=== PATIENT | female | born 1960 | race Caucasian/White ===

== ENCOUNTER 2016-07-27 08:24 | Emergency (ER) | payer BC, OTHER ==
[~2016-07-27] VITALS: Ht 162.6 cm; Wt 94.5 kg
[2016-07-27 08:31] VITALS: BP 149/93; PULSE 75; RESP 17; TEMP 97.6; O2SAT 95
[2016-07-27] MEDS ORDERED: LISI10TA3 PO (08:52)
[2016-07-27] MEDS ORDERED: VITA100064 PO (08:52)
[2016-07-27] MEDS ORDERED: JANU50TA4 PO (08:52)
[2016-07-27] MEDS ORDERED: CYCL1TAB29 PO (09:06)
[2016-07-27] MEDS ORDERED: NORC5TAB PO (09:06)
--- NOTE | 2016-07-27 09:06 | PD ---
HPI Chief Complaint: Injury Time Seen by Provider: 08:55 Travel History International Travel<30 days: No Contact w/Intl Traveler<30days: No Traveled to known affect area: No History of Present Illness HPI 55-year-old female here with complaint of right shoulder pain. Patient has been doing a fair amount of lawn work in maintenance. She was lifting the basket from the lawnmower off which was unfortunately filled with much sand. She states she strained her right shoulder. For the last 2 days she has not been having pain in the right shoulder made worse with movement particularly above the head. States it is uncomfortable to lay on the shoulder at night. She has been trying Tylenol, ibuprofen, ice with some improvement of her symptoms. PFSH Past Medical History Diabetes: Yes Patient Takes Glucophage: Yes Diminished Hearing: No Hypertension: Yes ?: Not Social History Alcohol Use: No Tobacco Use: Yes (06/08 PPD) Substance Use: No Allergies-Medications (Allergen,Severity, Reaction): Coded Allergies: No Known Allergies (Unverified , 07/27/16) Reported Meds & Prescriptions Reported Meds & Active Scripts Active [place] (Hydrocodone-Acetaminophen) 5-325 mg Tab 1-2 Tab PO Q6H PRN Flexeril (Cyclobenzaprine HCl) 10 Mg Tab 10 Mg PO TID PRN Reported Vitamin D (Cholecalciferol) 1,000 Unit Tab 1,000 Units PO DAILY Lisinopril 10 Mg Tab 10 Mg PO DAILY Janumet (Sitagliptin-Metformin) 50-500 Mg Tab 1 Tab PO BID Review of Systems Except as stated in HPI: all other systems reviewed are Neg Physical Exam Narrative GENERAL: Well-appearing female in no acute distress SKIN: Focused skin assessment warm/dry. HEAD: Normocephalic. EYES: No scleral icterus. No injection or drainage. ENT: No nasal bleeding or discharge. Mucous membranes pink and moist. NECK: Supple CARDIOVASCULAR: Regular rate and rhythm. No murmur appreciated. RESPIRATORY: No accessory muscle use. Clear to auscultation. Breath sounds equal bilaterally. GASTROINTESTINAL: Obese MUSCULOSKELETAL: No obvious deformities. No edema. Patient splints this shoulder to her torso. She has tenderness to palpation along the scapular region and the head of the biceps anteriorly. She is able to passively range the arm in the low range of motions but greater than 90 abduction or external rotation reproduces her pain both passively and actively. Distal sensation, pulses and strength is intact. NEUROLOGICAL: Awake and alert. Normal speech. PSYCHIATRIC: Appropriate mood and affect; insight and judgment normal. Data Data Last Documented VS Vital Signs Date Time Temp Pulse Resp B/P Pulse Ox O2 Delivery O2 Flow Rate FiO2 07/27/16 08:46 97 Room Air 07/27/16 08:31 97.6 75 17 149/93 MDM Medical Decision Making Medical Screen Exam Complete: Yes Emergency Medical Condition: Yes Medical Record Reviewed: Yes Differential Diagnosis 55-year-old female here with right sided shoulder pain made worse with movement since overuse injury when lifting heavy lawnmowing basket. Symptoms are consistent with rotator cuff strain and injury. She has not fallen or had any trauma and her exam is not consistent with fracture or dislocation. I do not think she warrants imaging. Narrative Course Patient was offered sling but frankly she was so she is moving the arm well and low range of motions are think that this would more inhibit her than anything. Patient will be given muscle relaxers and analgesics for home and encouraged to rest the shoulder. Diagnosis Primary Impression: Strain of muscle(s) and tendon(s) of the rotator cuff of right shoulder, initial encounter Referrals: Primary Care Physician as needed Additional Instructions: pain medications and muscle relaxers as needed. Ice the affected area 20 minutes at a time 3-4 times daily. Med/Other Pt SpecificInfo: Prescription(s) given Scripts Hydrocodone-Acetaminophen ([place])5-325 mg Tab1-2 Tab PO Q6H PRN (PAIN) #15 TAB Ref 0 Prov:Annette Andrews MD 07/27/16 Cyclobenzaprine (Flexeril)10 Mg Tab10 Mg PO TID PRN (SPASM) #21 TAB Ref 0 Prov:Annette Andrews MD 07/27/16 Disposition: 01 DISCHARGE HOME Condition: Stable Annette Andrews MD Jul 27, 2016 09:06
== END 2016-07-27 09:20 | disposition home or self-care (01) ==
LOC: PHED 08:24
DX: S46.011A Strain of muscle(s) and tendon(s) of the rotator cuff of right shoulder, initial encounter (principal); X50.0XXA Overexertion from strenuous movement or load, initial encounter; Y93.H2 Activity, gardening and landscaping; Y92.414 Local residential or business street as the place of occurrence of the external cause; Y99.0 Civilian activity done for income or pay
CPT/HCPCS: 99283